=== PATIENT | male | born 1965 | race Caucasian/White ===

== ENCOUNTER 2016-12-27 11:39 | Emergency (ER) | payer OTHER ==
[2016-12-27 13:49] VITALS: BP 143/83
== END 2016-12-27 14:16 | disposition home or self-care (01) ==
LOC: ED 11:39
DX: M25.561 Pain in right knee (principal)
CPT/HCPCS: J1885

== ENCOUNTER 2017-04-07 23:11 | Emergency (ER) | payer OTHER ==
[~2017-04-07] VITALS: Ht 167.6 cm; Wt 113.4 kg
[2017-04-08 02:29] VITALS: BP 124/73
== END 2017-04-08 02:29 | disposition home or self-care (01) ==
LOC: ED 23:11
DX: F10.229 Alcohol dependence with intoxication, unspecified (principal)